=== PATIENT | female | born 1995 | race African-American/Black ===

== ENCOUNTER 2016-09-29 19:39 | Emergency (ER) | payer MEDICAID ==
[~2016-09-29] VITALS: Ht 160 cm; Wt 63.6 kg
[~2016-09-29 19:39] MED LIST: COLACE 100100 MG/CAP PO; DILAUDID 2MG TAB2 MG PO; DOXYCYCLINE 10100 MG PO; FOLIC ACID 11 MG/TA1 PO; HYDROXYURE500 MG/CAP PO; LEVAQUIN 5500 MG/TA1 PO; MOTRIN 200200 MG/TAB PO; MULTI VITAMINS1 TAB PO; NORCO 325 MG-51 TAB PO; NORCO 325 MG-7.1 TAB PO; PEN-VEE K500 MG PO; PERCOCET 325 MG1 TA2 PO; PHENERGAN 25 TA25 MG PO; SENOKOT S 50 MG1 TAB PO; TYLENOL W/COD1 UDTAB PO; VITAMIN D32000 I1 PO; ZITHROMAX 250M250 MG PO; ZOFRAN 4MG T4 MG/TAB PO
[2016-09-29 19:41] VITALS: TEMP 99
[2016-09-29 22:04] LABS: MEAN CELL VOLUME 96 fl (80.0-100.0); MEAN CORPUSCULAR HGB CONC 35 g/dl (33.0-37.0); MEAN PLATELET VOLUME 8.8 fl (7.4-10.4); PLATELET COUNT 404 K/mm3 (130-400); RED BLOOD COUNT 2.46 M/mm3 (4.10-5.30); REDCELL DISTRIBUTION WIDTH-CV 23.2 % (11.5-14.5); RETIC % 25.8 % (0.5-3.52); WHITE BLOOD COUNT 18.8 K/mm3 (4.8-10.8)
[2016-09-29 22:06] LABS: HEMATOCRIT 23.5 % (37.0-47.0); HEMOGLOBIN 8.2 g/dl (12.5-16.0); MEAN CORPUSCULAR HEMOGLOBIN 33 pg (27.0-31.0)
[2016-09-29 22:07] LABS: ADD PATHOLOGY DIFF REVIEW NO
[2016-09-29 22:14] LABS: ADJUSTED CALCIUM 8.8 mg/dL (8.4-10.2); ALBUMIN 4.9 gm/dL (3.5-5.0); BILIRUBIN,TOTAL 5.2 mg/dL (0.0-1.0); CALCIUM 9.5 mg/dL (8.4-10.2); CREATININE, serum 0.42 mg/dL (0.52-1.25); TOTAL PROTEIN 8.7 gm/dL (6.4-8.2)
[2016-09-29 22:36] LABS: ANISOCYTOSIS 3+; BAND 1 % (0-10); EOSINOPHIL 1 % (0-4); NEUTROPHILS 89 % (42.0-75.2); PLATELET ESTIMATE INCREASED (NORMAL); TOTAL CELLS COUNTED 100
[2016-09-29 22:37] LABS: SICKLE CELLS 3+
[2016-09-29] MEDS ORDERED: PHENERGAN 25 TA25 MG PO (23:58)
[2016-09-29] MEDS ORDERED: ZOFRAN ODT4 MG PO (23:58)
[2016-09-30 00:01] LABS: PH 7 (5-8); SQUAMOUS EPITHELIAL 0-2 /hpf; URINE APPEARANCE Clear; URINE BACTERIA Rare /hpf; URINE BILIRUBIN Negative (NEGATIVE); URINE BLOOD 2+ (NEGATIVE); URINE COLOR Yellow; URINE GLUCOSE Negative (NEGATIVE); URINE KETONE Negative (NEGATIVE); URINE RBC 0-2 /hpf; URINE UROBILINOGEN >=4.0 mg/dL (NEGATIVE); URINE WBC 0-2 /hpf
[2016-09-30 00:32] LABS: TROPONIN-I 0.027 ng/mL (0.000-0.034)
[2016-09-30 01:29] VITALS: BP 100/69; PULSE 116
== END 2016-09-30 01:32 | disposition home or self-care (01) ==
LOC: COL.ER 19:39
PROVIDERS: Emergency Medicine
DX: R11.2 Nausea with vomiting, unspecified (principal); D57.1 Sickle-cell disease without crisis; R00.0 Tachycardia, unspecified; R10.13 Epigastric pain; R10.32 Left lower quadrant pain; N83.201 Unspecified ovarian cyst, right side; R19.7 Diarrhea, unspecified
CPT/HCPCS: J2405; J2550; J3010; J7030

== ENCOUNTER 2016-10-06 09:57 | Inpatient (IN) | payer MEDICAID ==
[~2016-10-06] VITALS: Ht 160 cm; Wt 68.9 kg
[~2016-10-06 09:57] MED LIST changes: +ZOFRAN ODT4 MG PO
[2016-10-06] MEDS ORDERED: VITAMIN D 1001000 IU PO (10:13)
[2016-10-06 10:42] LABS: MEAN CELL VOLUME 97 fl (80.0-100.0); MEAN CORPUSCULAR HGB CONC 34 g/dl (33.0-37.0); MEAN PLATELET VOLUME 9.5 fl (7.4-10.4); PLATELET COUNT 351 K/mm3 (130-400); RED BLOOD COUNT 2.19 M/mm3 (4.10-5.30); REDCELL DISTRIBUTION WIDTH-CV 22.5 % (11.5-14.5); RETIC % 25.6 % (0.5-3.52); WHITE BLOOD COUNT 17.2 K/mm3 (4.8-10.8)
[2016-10-06 10:52] LABS: ADJUSTED CALCIUM 8.7 mg/dL (8.4-10.2); ALBUMIN 4.4 gm/dL (3.5-5.0); CREATININE, serum 0.4 mg/dL (0.52-1.25); POTASSIUM 3.7 mmol/L (3.4-5.0); TOTAL PROTEIN 7.7 gm/dL (6.4-8.2)
[2016-10-06 11:50] LABS: HEMATOCRIT 21.2 % (37.0-47.0); HEMOGLOBIN 7.1 g/dl (12.5-16.0); MEAN CORPUSCULAR HEMOGLOBIN 32 pg (27.0-31.0)
[2016-10-06 11:54] LABS: ADD PATHOLOGY DIFF REVIEW NO
[2016-10-06 12:50] LABS: BAND 1 % (0-10); BASOPHIL 2 % (0-2); EOSINOPHIL 3 % (0-4); METAMYELOCYTE 2 % (0-0); MYELOCYTE 2 % (0-0); NEUTROPHILS 49 % (42.0-75.2); TOTAL CELLS COUNTED 100
[2016-10-06 12:52] LABS: PLATELET ESTIMATE NORMAL (NORMAL)
[2016-10-06 12:55] LABS: ANISOCYTOSIS 3+; HYPOCHROMIA 2+; POIKILOCYTOSIS 3+; POLYCHROMASIA 3+
[2016-10-06 12:56] LABS: MICROCYTOSIS 1+
[2016-10-06 12:57] LABS: TARGET CELLS 1+; TEAR DROP CELLS 1+
[2016-10-06 13:01] LABS: SICKLE CELLS 2+
[2016-10-06 14:39] VITALS: BP 115/74; PULSE 109; TEMP 98.7
[2016-10-06 21:06] VITALS: BP 118/60; PULSE 119; TEMP 100
[2016-10-06 22:56] LABS: PH 6 (5-8); SQUAMOUS EPITHELIAL 0-2 /hpf; URINE APPEARANCE Clear; URINE BACTERIA Rare /hpf; URINE BILIRUBIN Negative (NEGATIVE); URINE BLOOD 1+ (NEGATIVE); URINE COLOR Yellow; URINE GLUCOSE Negative (NEGATIVE); URINE KETONE Negative (NEGATIVE); URINE RBC 0-2 /hpf; URINE WBC 0-2 /hpf
[2016-10-07] VITALS (15 sets, daily range): BP systolic 115–135; BP diastolic 60–86; PULSE 100–133; TEMP 98.4–101
[2016-10-07 07:09] LABS: MEAN CELL VOLUME 93 fl (80.0-100.0); MEAN CORPUSCULAR HGB CONC 35 g/dl (33.0-37.0); MEAN PLATELET VOLUME 9.4 fl (7.4-10.4); PLATELET COUNT 367 K/mm3 (130-400); REDCELL DISTRIBUTION WIDTH-CV 21.8 % (11.5-14.5); RETIC % 23.7 % (0.5-3.52)
[2016-10-07 07:16] LABS: WHITE BLOOD COUNT 21.1 K/mm3 (4.8-10.8)
[2016-10-07 07:17] LABS: HEMATOCRIT 18.5 % (37.0-47.0); HEMOGLOBIN 6.4 g/dl (12.5-16.0); MEAN CORPUSCULAR HEMOGLOBIN 32 pg (27.0-31.0)
[2016-10-07 07:23] LABS: CALCIUM 8.6 mg/dL (8.4-10.2); CREATININE, serum 0.36 mg/dL (0.52-1.25); POTASSIUM 3.5 mmol/L (3.4-5.0)
[2016-10-07 08:00] LABS: BAND 3 % (0-10); BASOPHIL 1 % (0-2); NEUTROPHILS 79 % (42.0-75.2); PLATELET ESTIMATE NORMAL (NORMAL); TOTAL CELLS COUNTED 100
[2016-10-07 08:01] LABS: ANISOCYTOSIS 2+; HYPOCHROMIA 1+; POLYCHROMASIA 2+
[2016-10-07 08:57] LABS: ADD PATHOLOGY DIFF REVIEW YES
[2016-10-08 00:09] VITALS: BP 129/81; PULSE 128; TEMP 101.4
[2016-10-08 03:34] LABS: MEAN CELL VOLUME 92 fl (80.0-100.0); MEAN CORPUSCULAR HGB CONC 35 g/dl (33.0-37.0); MEAN PLATELET VOLUME 9.3 fl (7.4-10.4); PLATELET COUNT 341 K/mm3 (130-400); REDCELL DISTRIBUTION WIDTH-CV 19.9 % (11.5-14.5)
[2016-10-08 03:44] LABS: CREATININE, serum 0.34 mg/dL (0.52-1.25); POTASSIUM 3.9 mmol/L (3.4-5.0)
[2016-10-08 03:59] LABS: HEMOGLOBIN 7.7 g/dl (12.5-16.0); MEAN CORPUSCULAR HEMOGLOBIN 32 pg (27.0-31.0)
[2016-10-08 04:01] LABS: ADD PATHOLOGY DIFF REVIEW NO; WHITE BLOOD COUNT 23.7 K/mm3 (4.8-10.8)
[2016-10-08 04:09] VITALS: BP 124/76; PULSE 124; TEMP 101.7
[2016-10-08 04:33] LABS: PH 6 (5-8); SQUAMOUS EPITHELIAL 0-2 /hpf; URINE APPEARANCE Clear; URINE BACTERIA Rare /hpf; URINE BILIRUBIN Negative (NEGATIVE); URINE BLOOD 1+ (NEGATIVE); URINE COLOR Yellow; URINE GLUCOSE Negative (NEGATIVE); URINE KETONE 1+ (NEGATIVE); URINE RBC 0-2 /hpf; URINE UROBILINOGEN Negative (NEGATIVE); URINE WBC 0-2 /hpf
[2016-10-08 04:34] LABS: ANISOCYTOSIS 2+; BAND 8 % (0-10); NEUTROPHILS 79 % (42.0-75.2); PLATELET ESTIMATE NORMAL (NORMAL); TOTAL CELLS COUNTED 100
[2016-10-08 04:36] LABS: POLYCHROMASIA 1+
[2016-10-08 08:48] VITALS: BP 124/78; PULSE 118; TEMP 99.1
[2016-10-08 11:42] LABS: INFLUENZA B NEGATIVE
[2016-10-08 17:21] VITALS: BP 124/70; PULSE 126; TEMP 100.6
[2016-10-08 20:50] VITALS: BP 124/72; PULSE 116; TEMP 100
[2016-10-09] VITALS (10 sets, daily range): BP systolic 120–132; BP diastolic 66–84; PULSE 97–125; TEMP 98–100.6
[2016-10-09 07:49] LABS: BASO % 0.2 % (0.0-2.0); EOS % 0.2 % (0-4.0); GRAN # 14.2 (1.4-6.5); GRAN % 80.2 % (42.2-75.2); LYMPH # 1.6 (1.2-3.4); LYMPH % 9.1 % (20.0-51.0); MEAN CELL VOLUME 94 fl (80.0-100.0); MEAN CORPUSCULAR HGB CONC 34 g/dl (33.0-37.0); MEAN PLATELET VOLUME 9.8 fl (7.4-10.4); MONO # 1.6 (0.1-0.6); MONO % 9.1 % (1.7-9.3); PLATELET COUNT 354 K/mm3 (130-400); RED BLOOD COUNT 1.94 M/mm3 (4.10-5.30); REDCELL DISTRIBUTION WIDTH-CV 19.1 % (11.5-14.5); RETIC % 21.9 % (0.5-3.52); WHITE BLOOD COUNT 17.6 K/mm3 (4.8-10.8)
[2016-10-09 07:52] LABS: HEMATOCRIT 18.2 % (37.0-47.0); HEMOGLOBIN 6.2 g/dl (12.5-16.0); MEAN CORPUSCULAR HEMOGLOBIN 32 pg (27.0-31.0)
[2016-10-09 08:18] LABS: CALCIUM 8.7 mg/dL (8.4-10.2); CREATININE, serum 0.34 mg/dL (0.52-1.25)
[2016-10-10] VITALS (10 sets, daily range): BP systolic 124–133; BP diastolic 76–960; PULSE 90–110; TEMP 98.3–99.1
[2016-10-10 07:40] LABS: BASO % 0.3 % (0.0-2.0); EOS # 0.2 (0.0-0.7); EOS % 1.5 % (0-4.0); GRAN # 8.5 (1.4-6.5); GRAN % 71.4 % (42.2-75.2); LYMPH # 1.8 (1.2-3.4); LYMPH % 15.4 % (20.0-51.0); MEAN CELL VOLUME 90 fl (80.0-100.0); MEAN CORPUSCULAR HGB CONC 34 g/dl (33.0-37.0); MEAN PLATELET VOLUME 9.3 fl (7.4-10.4); MONO # 1.3 (0.1-0.6); MONO % 10.6 % (1.7-9.3); PLATELET COUNT 397 K/mm3 (130-400); RED BLOOD COUNT 2.21 M/mm3 (4.10-5.30); REDCELL DISTRIBUTION WIDTH-CV 18.9 % (11.5-14.5); WHITE BLOOD COUNT 11.9 K/mm3 (4.8-10.8)
[2016-10-10 07:44] LABS: HEMATOCRIT 19.8 % (37.0-47.0); HEMOGLOBIN 6.7 g/dl (12.5-16.0); MEAN CORPUSCULAR HEMOGLOBIN 30 pg (27.0-31.0)
[2016-10-10 08:04] LABS: ANION GAP 9 mmol/L (7-16); CALCIUM 8.8 mg/dL (8.4-10.2); CARBON DIOXIDE 27 mmol/L (22-30); CHLORIDE 105 mmol/L (98-107); CREATININE, serum 0.35 mg/dL (0.52-1.25); GLUCOSE 79 mg/dL (74-106); SODIUM 142 mmol/L (137-145)
[2016-10-10 08:35] LABS: BLOOD UREA NITROGEN < 2 mg/dL (7-17)
[2016-10-10 08:37] LABS: POTASSIUM 2.9 mmol/L (3.4-5.0)
[2016-10-11] VITALS (9 sets, daily range): BP systolic 126–145; BP diastolic 81–90; PULSE 72–94; TEMP 98.3–99.8
[2016-10-11 07:15] LABS: BASO % 0.3 % (0.0-2.0); EOS # 0.2 (0.0-0.7); EOS % 2.5 % (0-4.0); GRAN # 5.3 (1.4-6.5); GRAN % 55.9 % (42.2-75.2); LYMPH # 2.9 (1.2-3.4); LYMPH % 30.2 % (20.0-51.0); MEAN CELL VOLUME 91 fl (80.0-100.0); MEAN CORPUSCULAR HGB CONC 33 g/dl (33.0-37.0); MEAN PLATELET VOLUME 9.4 fl (7.4-10.4); MONO % 10.6 % (1.7-9.3); PLATELET COUNT 394 K/mm3 (130-400); RED BLOOD COUNT 2.31 M/mm3 (4.10-5.30); REDCELL DISTRIBUTION WIDTH-CV 18.8 % (11.5-14.5); WHITE BLOOD COUNT 9.4 K/mm3 (4.8-10.8)
[2016-10-11 07:30] LABS: HEMOGLOBIN 6.9 g/dl (12.5-16.0); MEAN CORPUSCULAR HEMOGLOBIN 30 pg (27.0-31.0)
[2016-10-11 07:33] LABS: ANION GAP 9 mmol/L (7-16); CALCIUM 8.7 mg/dL (8.4-10.2); CARBON DIOXIDE 27 mmol/L (22-30); CHLORIDE 106 mmol/L (98-107); CREATININE, serum 0.33 mg/dL (0.52-1.25); GLUCOSE 79 mg/dL (74-106); POTASSIUM 3.2 mmol/L (3.4-5.0); SODIUM 142 mmol/L (137-145)
[2016-10-11 07:39] LABS: BLOOD UREA NITROGEN < 2 mg/dL (7-17)
[2016-10-11 08:22] LABS: MAGNESIUM 1.7 mg/dL (1.6-2.3)
[2016-10-12] VITALS (9 sets, daily range): BP systolic 122–140; BP diastolic 80–93; PULSE 63–92; TEMP 98.1–99.6
[2016-10-12 07:22] LABS: BASO % 0.3 % (0.0-2.0); EOS # 0.3 (0.0-0.7); EOS % 2.5 % (0-4.0); GRAN # 5.9 (1.4-6.5); GRAN % 56.6 % (42.2-75.2); LYMPH # 3.2 (1.2-3.4); LYMPH % 30.8 % (20.0-51.0); MEAN CELL VOLUME 91 fl (80.0-100.0); MEAN CORPUSCULAR HGB CONC 32 g/dl (33.0-37.0); MEAN PLATELET VOLUME 9.4 fl (7.4-10.4); MONO % 9.4 % (1.7-9.3); PLATELET COUNT 422 K/mm3 (130-400); RED BLOOD COUNT 2.45 M/mm3 (4.10-5.30); REDCELL DISTRIBUTION WIDTH-CV 19.6 % (11.5-14.5); WHITE BLOOD COUNT 10.4 K/mm3 (4.8-10.8)
[2016-10-12 07:35] LABS: ANION GAP 10 mmol/L (7-16); CARBON DIOXIDE 26 mmol/L (22-30); CHLORIDE 104 mmol/L (98-107); CREATININE, serum 0.35 mg/dL (0.52-1.25); GLUCOSE 78 mg/dL (74-106); POTASSIUM 3.3 mmol/L (3.4-5.0); SODIUM 141 mmol/L (137-145)
[2016-10-12 07:41] LABS: HEMATOCRIT 22.3 % (37.0-47.0); MEAN CORPUSCULAR HEMOGLOBIN 29 pg (27.0-31.0)
[2016-10-12 07:43] LABS: HEMOGLOBIN 7.2 g/dl (12.5-16.0)
[2016-10-12 07:44] LABS: BLOOD UREA NITROGEN < 2 mg/dL (7-17)
[2016-10-13 00:35] VITALS: BP 132/80; PULSE 73; TEMP 98.7
[2016-10-13 04:30] VITALS: BP 130/94; PULSE 74; TEMP 97.6
[2016-10-13 07:20] VITALS: BP 137/85; PULSE 108; TEMP 98.5
[2016-10-13 07:31] LABS: BASO % 0.3 % (0.0-2.0); EOS # 0.2 (0.0-0.7); EOS % 2.6 % (0-4.0); GRAN # 4.6 (1.4-6.5); GRAN % 52.5 % (42.2-75.2); LYMPH % 34.1 % (20.0-51.0); MEAN CELL VOLUME 92 fl (80.0-100.0); MEAN CORPUSCULAR HGB CONC 32 g/dl (33.0-37.0); MEAN PLATELET VOLUME 9.7 fl (7.4-10.4); MONO # 0.9 (0.1-0.6); MONO % 9.9 % (1.7-9.3); PLATELET COUNT 462 K/mm3 (130-400); REDCELL DISTRIBUTION WIDTH-CV 19.9 % (11.5-14.5); WHITE BLOOD COUNT 8.7 K/mm3 (4.8-10.8)
[2016-10-13 08:05] LABS: ANION GAP 10 mmol/L (7-16); CALCIUM 8.8 mg/dL (8.4-10.2); CARBON DIOXIDE 27 mmol/L (22-30); CHLORIDE 104 mmol/L (98-107); CREATININE, serum 0.35 mg/dL (0.52-1.25); GLUCOSE 83 mg/dL (74-106); POTASSIUM 3.4 mmol/L (3.4-5.0); SODIUM 141 mmol/L (137-145)
[2016-10-13 08:27] LABS: BLOOD UREA NITROGEN < 2 mg/dL (7-17)
[2016-10-13 08:47] LABS: HEMATOCRIT 22.9 % (37.0-47.0); HEMOGLOBIN 7.4 g/dl (12.5-16.0); MEAN CORPUSCULAR HEMOGLOBIN 30 pg (27.0-31.0)
[2016-10-13] MEDS ORDERED: MS CONTIN 115 MG/TAB PO (10:43)
[2016-10-13] MEDS ORDERED: NORCO 325 MG-51 TAB PO (10:43)
[2016-10-13] MEDS ORDERED: AMOXICILLIN 8751 TAB PO (10:43)
[2016-10-13 11:54] VITALS: BP 143/82; PULSE 54; TEMP 98.6
== END 2016-10-13 15:23 | disposition home or self-care (01) | DRG 811 ==
LOC: COL.ER 09:57 → MEDICAL 12:08
PROVIDERS: Emergency Medicine; Family Medicine; Internal Medicine; Nurse Practitioner Family
DX: D57.01 Hb-SS disease with acute chest syndrome (principal); A41.9 Sepsis, unspecified organism; J18.9 Pneumonia, unspecified organism; J91.8 Pleural effusion in other conditions classified elsewhere; K56.7 Ileus, unspecified; E87.6 Hypokalemia; R50.81 Fever presenting with conditions classified elsewhere
CPT/HCPCS: 99231-AI; 99232-AI; 99233-AI; 99239; A9284; G0378; J1170; J1200; J1644; J1650; J2060; J2270; J2405; J2543; J3370; J3480; J7030; J7040; J7050; P9016

== ENCOUNTER 2016-12-05 11:58 | Inpatient (IN) | payer MEDICAID ==
[~2016-12-05] VITALS: Ht 160 cm; Wt 69.2 kg
[2016-12-05] VITALS (9 sets, daily range): BP systolic 97–112; BP diastolic 45–77; PULSE 75–99; TEMP 98.1–98.3
[~2016-12-05 11:58] MED LIST changes: +AMOXICILLIN 8751 TAB PO; +MS CONTIN 115 MG/TAB PO; +VITAMIN D 1001000 IU PO
[2016-12-05 13:25] LABS: BASO # 0.1 (0.0-0.2); BASO % 0.5 % (0.0-2.0); EOS # 0.8 (0.0-0.7); EOS % 5.5 % (0-4.0); GRAN # 8.6 (1.4-6.5); GRAN % 56.3 % (42.2-75.2); LYMPH # 3.9 (1.2-3.4); LYMPH % 25.6 % (20.0-51.0); MEAN CELL VOLUME 100 fl (80.0-100.0); MEAN CORPUSCULAR HGB CONC 35 g/dl (33.0-37.0); MEAN PLATELET VOLUME 9.5 fl (7.4-10.4); MONO # 1.7 (0.1-0.6); MONO % 10.9 % (1.7-9.3); PLATELET COUNT 326 K/mm3 (130-400); RED BLOOD COUNT 2.14 M/mm3 (4.10-5.30); REDCELL DISTRIBUTION WIDTH-CV 28.1 % (11.5-14.5); RETIC % 37.7 % (0.5-3.52); WHITE BLOOD COUNT 15.3 K/mm3 (4.8-10.8)
[2016-12-05 13:26] LABS: HEMATOCRIT 21.3 % (37.0-47.0); MEAN CORPUSCULAR HEMOGLOBIN 35 pg (27.0-31.0)
[2016-12-05 13:27] LABS: HEMOGLOBIN 7.5 g/dl (12.5-16.0)
[2016-12-05 13:32] LABS: ADJUSTED CALCIUM 8.6 mg/dL (8.4-10.2); ALBUMIN 5.1 gm/dL (3.5-5.0); BILIRUBIN,TOTAL 4.8 mg/dL (0.0-1.0); C-REACTIVE PROTEIN 1.8 mg/dL (0.0-0.9); CALCIUM 9.5 mg/dL (8.4-10.2); CREATININE, serum 0.39 mg/dL (0.52-1.25); POTASSIUM 4.3 mmol/L (3.4-5.0); TOTAL PROTEIN 8.6 gm/dL (6.4-8.2)
[2016-12-05 15:47] LABS: PH 5 (5-8); SQUAMOUS EPITHELIAL 0-2 /hpf; URINE APPEARANCE Clear; URINE BACTERIA None Seen /hpf; URINE BILIRUBIN Negative (NEGATIVE); URINE BLOOD 1+ (NEGATIVE); URINE COLOR Yellow; URINE GLUCOSE Negative (NEGATIVE); URINE KETONE Negative (NEGATIVE); URINE RBC 0-2 /hpf; URINE WBC 0-2 /hpf
[2016-12-06] VITALS (10 sets, daily range): BP systolic 93–105; BP diastolic 48–66; PULSE 72–85; TEMP 98.3–99.1
[2016-12-07] VITALS (14 sets, daily range): BP systolic 94–115; BP diastolic 40–69; PULSE 65–103; TEMP 98.3–99.4
[2016-12-08] VITALS (7 sets, daily range): BP systolic 101–108; BP diastolic 50–60; PULSE 73–103; TEMP 98.2–99.5
[2016-12-09 01:11] VITALS: BP 104/55; PULSE 71; TEMP 99.5
[2016-12-09 03:56] VITALS: BP 107/53; PULSE 102; TEMP 99.1
[2016-12-09 07:34] VITALS: BP 107/49; PULSE 93; TEMP 99
[2016-12-09 12:00] VITALS: BP 111/57; PULSE 101; TEMP 98.2
[2016-12-09] MEDS ORDERED: ZOFRAN ODT4 MG PO (12:03)
[2016-12-09] MEDS ORDERED: PERCOCET 325 MG1 TAB PO (12:03)
[2016-12-09] MEDS ORDERED: MS CONTIN 115 MG/TAB PO (12:03)
== END 2016-12-09 14:04 | disposition home or self-care (01) | DRG 812 ==
LOC: COL.ER 11:58 → MEDICAL 16:42
PROVIDERS: Emergency Medicine
DX: D57.00 Hb-SS disease with crisis, unspecified (principal)
CPT/HCPCS: 99222-AI; 99232-AI; 99233-AI; 99239; J1170; J1200; J1644; J1650; J2175; J2405; J3010; J7030

== ENCOUNTER 2016-12-18 20:19 | Inpatient (IN) | payer MEDICAID ==
[~2016-12-18] VITALS: Ht 162.6 cm; Wt 62.5 kg
[~2016-12-18 20:19] MED LIST changes: +PERCOCET 325 MG1 TAB PO
[2016-12-18 21:00] LABS: HEMATOCRIT 18.7 % (37.0-47.0); HEMOGLOBIN 6.7 g/dl (12.5-16.0); MEAN CELL VOLUME 98 fl (80.0-100.0); MEAN CORPUSCULAR HEMOGLOBIN 35 pg (27.0-31.0); MEAN CORPUSCULAR HGB CONC 36 g/dl (33.0-37.0); MEAN PLATELET VOLUME 9.4 fl (7.4-10.4); PLATELET COUNT 343 K/mm3 (130-400); REDCELL DISTRIBUTION WIDTH-CV 25.4 % (11.5-14.5); RETIC % 23.9 % (0.5-3.52); WHITE BLOOD COUNT 18.7 K/mm3 (4.8-10.8)
[2016-12-18 21:07] LABS: ADJUSTED CALCIUM 8.8 mg/dL (8.4-10.2); BILIRUBIN,TOTAL 4.3 mg/dL (0.0-1.0); CALCIUM 9.6 mg/dL (8.4-10.2); CREATININE, serum 0.49 mg/dL (0.52-1.25); POTASSIUM 4.5 mmol/L (3.4-5.0); TOTAL PROTEIN 8.5 gm/dL (6.4-8.2)
[2016-12-18 21:19] LABS: ANISOCYTOSIS 3+; EOSINOPHIL 2 % (0-4); NEUTROPHILS 58 % (42.0-75.2); PLATELET ESTIMATE NORMAL (NORMAL); TOTAL CELLS COUNTED 100
[2016-12-18 21:20] LABS: POLYCHROMASIA 1+
[2016-12-18 22:29] VITALS: BP 120/70; PULSE 100; TEMP 100.2
[2016-12-18 23:38] VITALS: BP 106/48; PULSE 89; TEMP 99
[2016-12-18 23:54] VITALS: BP 106/49; PULSE 86; TEMP 98.7
[2016-12-19] VITALS (12 sets, daily range): BP systolic 102–112; BP diastolic 59–74; PULSE 73–95; TEMP 97.6–99.3
[2016-12-19 01:25] LABS: PH 6 (5-8); SQUAMOUS EPITHELIAL 0-2 /hpf; URINE APPEARANCE Hazy; URINE BACTERIA None Seen /hpf; URINE BILIRUBIN Negative (NEGATIVE); URINE BLOOD 2+ (NEGATIVE); URINE COLOR Yellow; URINE GLUCOSE Negative (NEGATIVE); URINE KETONE Negative (NEGATIVE); URINE RBC 0-2 /hpf; URINE UROBILINOGEN Negative (NEGATIVE); URINE WBC 0-2 /hpf
[2016-12-19 07:34] LABS: MEAN CELL VOLUME 98 fl (80.0-100.0); MEAN CORPUSCULAR HGB CONC 35 g/dl (33.0-37.0); MEAN PLATELET VOLUME 9.7 fl (7.4-10.4); PLATELET COUNT 343 K/mm3 (130-400); RED BLOOD COUNT 1.97 M/mm3 (4.10-5.30); REDCELL DISTRIBUTION WIDTH-CV 23.4 % (11.5-14.5); WHITE BLOOD COUNT 14.6 K/mm3 (4.8-10.8)
[2016-12-19 07:43] LABS: ADD PATHOLOGY DIFF REVIEW NO; HEMATOCRIT 19.2 % (37.0-47.0); HEMOGLOBIN 6.7 g/dl (12.5-16.0); MEAN CORPUSCULAR HEMOGLOBIN 34 pg (27.0-31.0)
[2016-12-19 07:45] LABS: CALCIUM 8.8 mg/dL (8.4-10.2); CREATININE, serum 0.4 mg/dL (0.52-1.25); POTASSIUM 3.8 mmol/L (3.4-5.0)
[2016-12-19 14:35] LABS: BAND 1 % (0-10); BASOPHIL 1 % (0-2); EOSINOPHIL 3 % (0-4); NEUTROPHILS 44 % (42.0-75.2); PLATELET ESTIMATE NORMAL (NORMAL); TOTAL CELLS COUNTED 100
[2016-12-19 14:36] LABS: ANISOCYTOSIS 4+; POIKILOCYTOSIS 4+
[2016-12-19 14:56] LABS: POLYCHROMASIA 2+
[2016-12-19 14:57] LABS: HYPOCHROMIA 2+
[2016-12-19 14:58] LABS: MICROCYTOSIS 1+; SICKLE CELLS 3+
[2016-12-20] VITALS (14 sets, daily range): BP systolic 90–126; BP diastolic 47–81; PULSE 60–107; TEMP 98.4–98.8
[2016-12-20 08:15] LABS: BASO % 0.3 % (0.0-2.0); EOS # 0.5 (0.0-0.7); EOS % 3.8 % (0-4.0); GRAN # 7.3 (1.4-6.5); GRAN % 62.4 % (42.2-75.2); LYMPH # 2.5 (1.2-3.4); MEAN CELL VOLUME 98 fl (80.0-100.0); MEAN CORPUSCULAR HGB CONC 34 g/dl (33.0-37.0); MEAN PLATELET VOLUME 9.7 fl (7.4-10.4); MONO # 1.4 (0.1-0.6); MONO % 11.9 % (1.7-9.3); PLATELET COUNT 332 K/mm3 (130-400); RED BLOOD COUNT 1.86 M/mm3 (4.10-5.30); REDCELL DISTRIBUTION WIDTH-CV 24.2 % (11.5-14.5); WHITE BLOOD COUNT 11.7 K/mm3 (4.8-10.8)
[2016-12-20 08:51] LABS: HEMATOCRIT 18.3 % (37.0-47.0); HEMOGLOBIN 6.2 g/dl (12.5-16.0); MEAN CORPUSCULAR HEMOGLOBIN 33 pg (27.0-31.0)
[2016-12-20 09:58] LABS: RETIC % 26.5 % (0.5-3.52)
[2016-12-21] VITALS (10 sets, daily range): BP systolic 105–129; BP diastolic 60–74; PULSE 73–118; TEMP 98.6–100.5
[2016-12-22] VITALS (14 sets, daily range): BP systolic 104–124; BP diastolic 55–77; PULSE 72–123; TEMP 98.2–99.6
[2016-12-22 07:32] LABS: BASO % 0.2 % (0.0-2.0); EOS # 0.1 (0.0-0.7); EOS % 1.3 % (0-4.0); GRAN # 6.9 (1.4-6.5); GRAN % 61.8 % (42.2-75.2); LYMPH # 2.9 (1.2-3.4); LYMPH % 25.5 % (20.0-51.0); MEAN CORPUSCULAR HGB CONC 35 g/dl (33.0-37.0); MEAN PLATELET VOLUME 9.6 fl (7.4-10.4); MONO # 1.2 (0.1-0.6); MONO % 10.8 % (1.7-9.3); PLATELET COUNT 398 K/mm3 (130-400); RED BLOOD COUNT 2.06 M/mm3 (4.10-5.30); REDCELL DISTRIBUTION WIDTH-CV 20.8 % (11.5-14.5); WHITE BLOOD COUNT 11.2 K/mm3 (4.8-10.8)
[2016-12-22 08:05] LABS: HEMATOCRIT 19.2 % (37.0-47.0); HEMOGLOBIN 6.7 g/dl (12.5-16.0); MEAN CELL VOLUME 93 fl (80.0-100.0); MEAN CORPUSCULAR HEMOGLOBIN 33 pg (27.0-31.0)
[2016-12-22 08:06] LABS: RETIC % 21.2 % (0.5-3.52)
[2016-12-22 14:55] LABS: BILIRUBIN,DIRECT 1.4 mg/dL (0.0-0.4); BILIRUBIN,TOTAL 3.9 mg/dL (0.0-1.0); TOTAL PROTEIN 6.1 gm/dL (6.4-8.2)
[2016-12-22 15:00] LABS: ALBUMIN 3.5 gm/dL (3.5-5.0)
[2016-12-23] VITALS (14 sets, daily range): BP systolic 102–116; BP diastolic 16–77; PULSE 74–99; TEMP 97.8–98.8
[2016-12-24] VITALS (9 sets, daily range): BP systolic 109–153; BP diastolic 64–86; PULSE 63–80; TEMP 98.5–98.9
[2016-12-24 17:23] LABS: BASO % 0.6 % (0.0-2.0); EOS # 0.9 (0.0-0.7); EOS % 13.1 % (0-4.0); GRAN # 2.2 (1.4-6.5); GRAN % 33.7 % (42.2-75.2); LYMPH # 2.8 (1.2-3.4); LYMPH % 42.7 % (20.0-51.0); MEAN CELL VOLUME 91 fl (80.0-100.0); MEAN CORPUSCULAR HGB CONC 34 g/dl (33.0-37.0); MEAN PLATELET VOLUME 8.8 fl (7.4-10.4); MONO # 0.6 (0.1-0.6); MONO % 9.6 % (1.7-9.3); PLATELET COUNT 448 K/mm3 (130-400); REDCELL DISTRIBUTION WIDTH-CV 17.2 % (11.5-14.5); WHITE BLOOD COUNT 6.6 K/mm3 (4.8-10.8)
[2016-12-24 17:43] LABS: HEMATOCRIT 29.9 % (37.0-47.0); HEMOGLOBIN 10.2 g/dl (12.5-16.0); MEAN CORPUSCULAR HEMOGLOBIN 31 pg (27.0-31.0)
[2016-12-25 08:36] VITALS: BP 101/59; PULSE 65
[2016-12-25 08:46] VITALS: BP 101/56; PULSE 65; TEMP 100.8
[2016-12-25 12:05] VITALS: BP 127/79; PULSE 64; TEMP 99.6
[2016-12-25 12:50] VITALS: BP 127/69; PULSE 64
[2016-12-25] MEDS ORDERED: DILAUDID8 M1 PO (15:23)
== END 2016-12-25 16:42 | disposition home or self-care (01) | DRG 811 ==
LOC: COL.ER 20:19 → MEDICAL 21:10
PROVIDERS: Emergency Medicine; Internal Medicine; Internal Medicine Cardiovascular Disease; Nurse Practitioner Family
DX: D57.01 Hb-SS disease with acute chest syndrome (principal); J18.9 Pneumonia, unspecified organism; J90 Pleural effusion, not elsewhere classified; R09.02 Hypoxemia; D72.829 Elevated white blood cell count, unspecified; Z91.041 Radiographic dye allergy status
CPT/HCPCS: 99223-AI; 99232-AI; 99233-AI; 99239; A9284; J1170; J1650; J1940; J1956; J2405; J2550; J2765; J3010; J7030; P9016

== ENCOUNTER 2017-03-10 14:40 | Inpatient (IN) | payer MEDICAID ==
[~2017-03-10] VITALS: Ht 160 cm; Wt 63.7 kg
[~2017-03-10 14:40] MED LIST changes: +DILAUDID8 M1 PO
[2017-03-10 16:39] LABS: PH 7 (5-8); URINE APPEARANCE Hazy; URINE BACTERIA Rare /hpf; URINE BILIRUBIN Negative (NEGATIVE); URINE BLOOD 1+ (NEGATIVE); URINE COLOR Yellow; URINE GLUCOSE Negative (NEGATIVE); URINE KETONE Negative (NEGATIVE); URINE UROBILINOGEN >=4.0 mg/dL (NEGATIVE)
[2017-03-10 18:10] LABS: MEAN CELL VOLUME 101 fl (80.0-100.0); MEAN CORPUSCULAR HGB CONC 33 g/dl (33.0-37.0); MEAN PLATELET VOLUME 10.7 fl (7.4-10.4); PLATELET COUNT 215 K/mm3 (130-400); RETIC % 32.3 % (0.5-3.52)
[2017-03-10 18:16] LABS: HEMATOCRIT 21.2 % (37.0-47.0); HEMOGLOBIN 6.9 g/dl (12.5-16.0); MEAN CORPUSCULAR HEMOGLOBIN 33 pg (27.0-31.0)
[2017-03-10 18:22] LABS: ADJUSTED CALCIUM 8.7 mg/dL (8.4-10.2); ALBUMIN 3.6 gm/dL (3.5-5.0); BILIRUBIN,TOTAL 2.7 mg/dL (0.0-1.0); CALCIUM 8.4 mg/dL (8.4-10.2); CREATININE, serum 0.37 mg/dL (0.52-1.25); POTASSIUM 4.6 mmol/L (3.4-5.0)
[2017-03-10 18:31] LABS: ADD PATHOLOGY DIFF REVIEW NO
[2017-03-10 19:17] LABS: METAMYELOCYTE 1 % (0-0); MYELOCYTE 2 % (0-0); NEUTROPHILS 43 % (42.0-75.2); PLATELET ESTIMATE NORMAL (NORMAL); TOTAL CELLS COUNTED 100
[2017-03-10 19:18] LABS: ANISOCYTOSIS 3+; POIKILOCYTOSIS 2+; POLYCHROMASIA 3+
[2017-03-10 19:20] LABS: STOMATOCYTE 1+; TARGET CELLS 2+
[2017-03-10 19:21] LABS: HYPOCHROMIA 1+
[2017-03-10 19:25] LABS: SICKLE CELLS 1+
[2017-03-10 21:04] VITALS: BP 125/71; PULSE 98; TEMP 98.6
[2017-03-10 22:25] LABS: BASO # 0.1 (0.0-0.2); BASO % 0.4 % (0.0-2.0); EOS # 0.1 (0.0-0.7); EOS % 0.7 % (0-4.0); GRAN # 4.7 (1.4-6.5); GRAN % 24.3 % (42.2-75.2); LYMPH # 12.8 (1.2-3.4); LYMPH % 66.7 % (20.0-51.0); MEAN CELL VOLUME 101 fl (80.0-100.0); MEAN CORPUSCULAR HGB CONC 32 g/dl (33.0-37.0); MEAN PLATELET VOLUME 9.9 fl (7.4-10.4); MONO # 1.2 (0.1-0.6); MONO % 6.3 % (1.7-9.3); REDCELL DISTRIBUTION WIDTH-CV 30.4 % (11.5-14.5); WHITE BLOOD COUNT 19.1 K/mm3 (4.8-10.8)
[2017-03-10 22:26] LABS: HEMATOCRIT 20.2 % (37.0-47.0); MEAN CORPUSCULAR HEMOGLOBIN 33 pg (27.0-31.0); PLATELET COUNT 319 K/mm3 (130-400)
[2017-03-10 22:27] LABS: HEMOGLOBIN 6.5 g/dl (12.5-16.0)
[2017-03-10 22:30] VITALS: BP 103/58; PULSE 104; TEMP 98.1
[2017-03-11] VITALS (15 sets, daily range): BP systolic 86–110; BP diastolic 54–74; PULSE 91–120; TEMP 97.3–98.7
[2017-03-12 00:10] VITALS: BP 97/59; PULSE 95; TEMP 97.4
[2017-03-12 03:52] VITALS: BP 107/71; PULSE 100; TEMP 98.1
[2017-03-12 07:41] VITALS: BP 106/61; PULSE 108; TEMP 98.4
[2017-03-12 09:39] LABS: MEAN CORPUSCULAR HGB CONC 34 g/dl (33.0-37.0); MEAN PLATELET VOLUME 10.1 fl (7.4-10.4); PLATELET COUNT 246 K/mm3 (130-400); RED BLOOD COUNT 2.77 M/mm3 (4.10-5.30); RETIC % 23.1 % (0.5-3.52); WHITE BLOOD COUNT 12.2 K/mm3 (4.8-10.8)
[2017-03-12 09:41] LABS: ADD PATHOLOGY DIFF REVIEW NO; HEMATOCRIT 26.3 % (37.0-47.0); HEMOGLOBIN 8.9 g/dl (12.5-16.0); MEAN CELL VOLUME 95 fl (80.0-100.0); MEAN CORPUSCULAR HEMOGLOBIN 32 pg (27.0-31.0)
[2017-03-12 09:55] LABS: BAND 3 % (0-10); NEUTROPHILS 39 % (42.0-75.2); PLATELET ESTIMATE NORMAL (NORMAL); TOTAL CELLS COUNTED 100
[2017-03-12 09:56] LABS: POLYCHROMASIA 1+; TARGET CELLS 1+
[2017-03-12 11:28] VITALS: BP 106/72; PULSE 99; TEMP 98.1
[2017-03-12 13:06] LABS: ADJUSTED CALCIUM 6.5 mg/dL (8.4-10.2); ALANINE AMINOTRANSFERASE 46 U/L (9-52); ALBUMIN 1.6 gm/dL (3.5-5.0); ALKALINE PHOSPHATASE 69 U/L (50-136); ANION GAP 5 mmol/L (7-16); BILIRUBIN,TOTAL 1.4 mg/dL (0.0-1.0); CARBON DIOXIDE 15 mmol/L (22-30); CHLORIDE 120 mmol/L (98-107); CREATININE, serum 0.24 mg/dL (0.52-1.25); GLUCOSE 40 mg/dL (74-106); SODIUM 140 mmol/L (137-145); TOTAL PROTEIN 3.8 gm/dL (6.4-8.2)
[2017-03-12 13:08] LABS: BLOOD UREA NITROGEN < 2 mg/dL (7-17)
[2017-03-12 13:09] LABS: CALCIUM 4.6 mg/dL (8.4-10.2); POTASSIUM 2.3 mmol/L (3.4-5.0)
[2017-03-12 14:05] LABS: ALBUMIN 3.6 gm/dL (3.5-5.0); BILIRUBIN,TOTAL 2.4 mg/dL (0.0-1.0); CALCIUM 8.7 mg/dL (8.4-10.2); CREATININE, serum 0.38 mg/dL (0.52-1.25); TOTAL PROTEIN 7.1 gm/dL (6.4-8.2)
[2017-03-12 15:34] VITALS: BP 111/67; PULSE 104; TEMP 98
[2017-03-12 21:06] VITALS: BP 108/61; PULSE 113; TEMP 98.3
[2017-03-13] VITALS (7 sets, daily range): BP systolic 104–120; BP diastolic 61–701; PULSE 97–120; TEMP 97.7–99.3
[2017-03-13 10:54] LABS: MEAN CELL VOLUME 97 fl (80.0-100.0); MEAN CORPUSCULAR HGB CONC 36 g/dl (33.0-37.0); MEAN PLATELET VOLUME 9.7 fl (7.4-10.4); RED BLOOD COUNT 2.57 M/mm3 (4.10-5.30); REDCELL DISTRIBUTION WIDTH-CV 25.2 % (11.5-14.5); RETIC % 19.5 % (0.5-3.52); WHITE BLOOD COUNT 11.4 K/mm3 (4.8-10.8)
[2017-03-13 10:55] LABS: HEMATOCRIT 24.8 % (37.0-47.0); HEMOGLOBIN 8.8 g/dl (12.5-16.0); MEAN CORPUSCULAR HEMOGLOBIN 34 pg (27.0-31.0); PLATELET COUNT 354 K/mm3 (130-400)
[2017-03-13 10:56] LABS: ADD PATHOLOGY DIFF REVIEW NO
[2017-03-13 12:13] LABS: BAND 3 % (0-10); BASOPHIL 1 % (0-2); EOSINOPHIL 1 % (0-4); METAMYELOCYTE 5 % (0-0); NEUTROPHILS 48 % (42.0-75.2); TOTAL CELLS COUNTED 100
[2017-03-13 12:16] LABS: PLATELET ESTIMATE NORMAL (NORMAL)
[2017-03-13 12:17] LABS: TOXIC GRANULATION PRESENT
[2017-03-13 12:18] LABS: ANISOCYTOSIS 3+
[2017-03-13 12:19] LABS: HOWELL-JOLLY BODIES 1+; SPHEROCYTE 3+
[2017-03-13 12:21] LABS: TARGET CELLS 2+
[2017-03-14 02:53] VITALS: BP 99/67; PULSE 103; TEMP 98.8
[2017-03-14 08:51] VITALS: BP 114/78; PULSE 95; TEMP 98.1
[2017-03-14 09:28] LABS: MEAN CELL VOLUME 97 fl (80.0-100.0); MEAN CORPUSCULAR HGB CONC 36 g/dl (33.0-37.0); MEAN PLATELET VOLUME 9.5 fl (7.4-10.4); PLATELET COUNT 365 K/mm3 (130-400); RED BLOOD COUNT 2.65 M/mm3 (4.10-5.30); REDCELL DISTRIBUTION WIDTH-CV 24.6 % (11.5-14.5); RETIC % 15.5 % (0.5-3.52); WHITE BLOOD COUNT 10.9 K/mm3 (4.8-10.8)
[2017-03-14 09:29] LABS: ADD PATHOLOGY DIFF REVIEW NO; HEMATOCRIT 25.6 % (37.0-47.0); HEMOGLOBIN 9.2 g/dl (12.5-16.0); MEAN CORPUSCULAR HEMOGLOBIN 35 pg (27.0-31.0)
[2017-03-14 10:03] LABS: EOSINOPHIL 1 % (0-4); METAMYELOCYTE 1 % (0-0); NEUTROPHILS 34 % (42.0-75.2); TOTAL CELLS COUNTED 100
[2017-03-14 10:05] LABS: PLATELET ESTIMATE NORMAL (NORMAL)
[2017-03-14 10:06] LABS: TARGET CELLS 1+
[2017-03-14 10:07] LABS: MICROCYTOSIS 1+; POIKILOCYTOSIS 2+
[2017-03-14 10:08] LABS: POLYCHROMASIA 1+
[2017-03-14 13:00] VITALS: BP 110/78; PULSE 94; TEMP 98.6
[2017-03-14 16:31] VITALS: BP 114/77; PULSE 99; TEMP 98.2
[2017-03-14 19:37] VITALS: BP 110/74; PULSE 105; TEMP 98.2
[2017-03-14 23:55] VITALS: BP 109/70; PULSE 90; TEMP 98.3
[2017-03-15 04:12] VITALS: BP 114/78; PULSE 87; TEMP 97.7
[2017-03-15 08:51] VITALS: BP 110/72; PULSE 90; TEMP 97.5
[2017-03-15 10:08] LABS: BASO % 0.5 % (0.0-2.0); EOS # 0.1 (0.0-0.7); EOS % 1.2 % (0-4.0); GRAN # 3.5 (1.4-6.5); GRAN % 39.6 % (42.2-75.2); LYMPH # 4.3 (1.2-3.4); LYMPH % 48.9 % (20.0-51.0); MEAN CELL VOLUME 93 fl (80.0-100.0); MEAN CORPUSCULAR HGB CONC 35 g/dl (33.0-37.0); MEAN PLATELET VOLUME 9.3 fl (7.4-10.4); MONO # 0.8 (0.1-0.6); MONO % 9.2 % (1.7-9.3); PLATELET COUNT 406 K/mm3 (130-400); RED BLOOD COUNT 2.54 M/mm3 (4.10-5.30); REDCELL DISTRIBUTION WIDTH-CV 22.1 % (11.5-14.5); RETIC % 11.7 % (0.5-3.52); WHITE BLOOD COUNT 8.9 K/mm3 (4.8-10.8)
[2017-03-15 10:09] LABS: HEMATOCRIT 23.7 % (37.0-47.0); HEMOGLOBIN 8.3 g/dl (12.5-16.0); MEAN CORPUSCULAR HEMOGLOBIN 33 pg (27.0-31.0)
[2017-03-15 12:05] VITALS: BP 122/71; PULSE 104; TEMP 97.6
[2017-03-15 16:25] VITALS: BP 109/70; PULSE 88; TEMP 98.5
[2017-03-15 17:45] LABS: CEREBROSPINAL TUBE #4; CSF APPEARANCE CLEAR; CSF COLOR COLORLESS
[2017-03-15 19:10] VITALS: BP 99/61; PULSE 106; TEMP 98.5
[2017-03-15 22:50] VITALS: BP 107/79; PULSE 110; TEMP 98.7
[2017-03-16 03:58] VITALS: BP 105/61; PULSE 82; TEMP 97.7
[2017-03-16 07:45] VITALS: BP 108/59; PULSE 100; TEMP 98.1
[2017-03-16 07:59] LABS: MEAN CORPUSCULAR HGB CONC 38 g/dl (33.0-37.0); MEAN PLATELET VOLUME 9.7 fl (7.4-10.4); PLATELET COUNT 406 K/mm3 (130-400); RED BLOOD COUNT 2.17 M/mm3 (4.10-5.30); REDCELL DISTRIBUTION WIDTH-CV 24.8 % (11.5-14.5); RETIC % 8.5 % (0.5-3.52); WHITE BLOOD COUNT 8.3 K/mm3 (4.8-10.8)
[2017-03-16 08:16] LABS: HEMATOCRIT 21.2 % (37.0-47.0); MEAN CELL VOLUME 98 fl (80.0-100.0); MEAN CORPUSCULAR HEMOGLOBIN 37 pg (27.0-31.0)
[2017-03-16 08:18] LABS: ADD PATHOLOGY DIFF REVIEW NO
[2017-03-16 08:53] LABS: EOSINOPHIL 2 % (0-4); METAMYELOCYTE 2 % (0-0); NEUTROPHILS 41 % (42.0-75.2); TOTAL CELLS COUNTED 100
[2017-03-16 08:54] LABS: PLATELET ESTIMATE NORMAL (NORMAL); POLYCHROMASIA 1+; TARGET CELLS 1+
[2017-03-16] MEDS ORDERED: NEURONTIN300 MG/CAP PO ×2 (12:10→12:11)
[2017-03-16] MEDS ORDERED: CYMBALTA 30MG30 MG PO (12:15)
[2017-03-16 12:47] VITALS: BP 101/70; PULSE 79; TEMP 98.2
[2017-03-17 13:55] LABS: CADMIUM BLOOD <0.2 ng/mL (0.0-4.9); MERCURY,SERUM <1 ng/mL (0-9)
[2017-03-17 18:04] LABS: .ANTICARDIOLIPIN IGG <9.4 GPL (()); .ANTICARDIOLIPIN IGM 10.9 MPL (())
[2017-03-21 16:04] LABS: 14-3-3 PROTEIN CSF 7.7 ng/mL (())
[2017-03-22 10:05] LABS: ALBUMIN CSF 52.3 mg/dL (<=27.0); CSF IGG/ALBUMIN 0.07 (<=0.21); CSF,IGG 3.8 mg/dL (<=8.1)
[2017-03-22 10:37] LABS: CSF-IGG INDEX 0.19 (<=0.85); IGG,SERUM 1490 mg/dL (()); IGG/ALBUMIN SERUM 0.37 (<=0.40)
== END 2017-03-16 16:52 | disposition home or self-care (01) | DRG 812 ==
LOC: COL.ER 14:40 → MEDICAL 19:21
PROVIDERS: Family Medicine; Internal Medicine; Nurse Practitioner; Nurse Practitioner Family; Physician Assistant; Psychiatry & Neurology Neurology
PROC: 009U3ZX Drainage of Spinal Canal, Percutaneous Approach, Diagnostic (ICD-10-PCS; principal; 2017-03-15)
PROC: B01B1ZZ Fluoroscopy of Spinal Cord using Low Osmolar Contrast (ICD-10-PCS; 2017-03-15)
DX: D57.00 Hb-SS disease with crisis, unspecified (principal); T82.514A Breakdown (mechanical) of infusion catheter, initial encounter; F32.9 Major depressive disorder, single episode, unspecified; G62.9 Polyneuropathy, unspecified; G35 Multiple sclerosis; I77.6 Arteritis, unspecified
CPT/HCPCS: OP; 99223-AI; 99232-AI; 99239; A9585; J0456; J0696; J1170; J1200; J1644; J1650; J1940; J2405; J2997; J3010; J7030; J7050; P9016

== ENCOUNTER 2017-05-05 03:51 | Inpatient (IN) | payer MEDICAID ==
[~2017-05-05] VITALS: Ht 160 cm; Wt 64.0 kg
[2017-05-05] VITALS (9 sets, daily range): BP systolic 108–130; BP diastolic 57–64; PULSE 67–84; TEMP 97.8–98.5
[~2017-05-05 03:51] MED LIST changes: +CYMBALTA 30MG30 MG PO; +NEURONTIN300 MG/CAP PO
[2017-05-05 04:40] LABS: MEAN CELL VOLUME 92 fl (80.0-100.0); MEAN CORPUSCULAR HGB CONC 37 g/dl (33.0-37.0); MEAN PLATELET VOLUME 8.9 fl (7.4-10.4); PLATELET COUNT 277 K/mm3 (130-400); RETIC # 0.67 M/mm3 (0.02-0.16); RETIC % 31.9 % (0.5-3.52)
[2017-05-05 04:41] LABS: HEMATOCRIT 19.3 % (37.0-47.0); HEMOGLOBIN 7.2 g/dl (12.5-16.0); MEAN CORPUSCULAR HEMOGLOBIN 34 pg (27.0-31.0)
[2017-05-05 04:56] LABS: ALBUMIN 4.8 gm/dL (3.5-5.0); BILIRUBIN,TOTAL 4.5 mg/dL (0.0-1.0); CALCIUM 9.2 mg/dL (8.4-10.2); CREATININE, serum 0.46 mg/dL (0.52-1.25); POTASSIUM 3.7 mmol/L (3.4-5.0); TOTAL PROTEIN 8.7 gm/dL (6.4-8.2)
[2017-05-05 04:58] LABS: ANISOCYTOSIS 2+; BAND 3 % (0-10); EOSINOPHIL 2 % (0-4); LYMPHOCYTE 47 % (20.0-51.0); NEUTROPHILS 39 % (42.0-75.2); NUCLEATED RED BLOOD CELL 5 (0-6); POLYCHROMASIA 1+
[2017-05-05 05:00] LABS: SICKLE CELLS 2+
--- NOTE | 2017-05-05 06:41 | NUR ---
Patient assessment completed, vital signs are stable, patient reports 6/10 pain in her lower back and all extremities, INDIGO MIXER has been initiated, she denies having any additional concerns at this time, currently she is resting calmly in bed, call light is in reach, will continue to monitor.
[2017-05-05 09:03] LABS: COLLECTION METHOD CLEAN CATCH
[2017-05-05 09:11] LABS: PH 6 (5-8); URINE APPEARANCE Hazy; URINE BACTERIA Rare /hpf; URINE BILIRUBIN Negative (NEGATIVE); URINE BLOOD 1+ (NEGATIVE); URINE COLOR Yellow; URINE GLUCOSE Negative (NEGATIVE); URINE KETONE Negative (NEGATIVE); URINE LEUKOCYTE ESTERASE Negative (NEGATIVE); URINE NITRATE Negative (NEGATIVE); URINE PROTEIN(semi-quant) Negative (NEGATIVE); URINE RBC 0-2 /hpf; URINE UROBILINOGEN >=4.0 mg/dL (NEGATIVE)
--- NOTE | 2017-05-05 09:45 | NUR ---
Patient resting in bed at this time. Patient appears weak and in significant pain. She is c/o pain in bilateral lower extremities 8/10 on the pain scale. TECHNICAL PUBLICATIONS WRITER Diludid being used by patient frequently. No other needs at this time
--- NOTE | 2017-05-05 10:25 | NUR ---
Carli is well known to this NCM. She is completely independent and has no dc needs. She has roommates that she can rely on if needed. She is here w/ [facility]. This NCM will cont to follow along.
--- NOTE | 2017-05-05 14:01 | NUR ---
Patient resting in bed. Continues to use PATIENT REGISTRATION SPECIALIST Diludid. Patient states she had some nausea this AM but no emesis noted. Patient denies any needs at this time.
--- NOTE | 2017-05-05 18:39 | NUR ---
Patient has no further c/o's nausea. Resting in bed at this time. Denies any needs. Continues to use PIGS FEET CLEANER Diludid. Drowsy every time in room.
--- NOTE | 2017-05-05 20:40 | NUR ---
Pt sleeping at this time. Assessment complete. A&Ox3. Lungs CTA. Heart rhythm regular. Audible bowel sounds X4. IV infusing per orders without difficulty. Pt denies pain at this time. Pt denies any needs at this time. Call light in reach. Will continue to monitor.
[2017-05-06] VITALS (7 sets, daily range): BP systolic 94–137; BP diastolic 54–69; PULSE 70–95; TEMP 97.5–98.8
--- NOTE | 2017-05-06 06:20 | NUR ---
Pt had uneventful night. Pt slept throughout the shift with even and unlabored respirations. IV infusing per orders without difficulty. Call light in reach.
[2017-05-06 07:10] LABS: BASO % 0.3 % (0.0-2.0); EOS # 0.3 (0.0-0.7); EOS % 3.2 % (0-4.0); GRAN # 2.8 (1.4-6.5); GRAN % 33.1 % (42.2-75.2); LYMPH # 4.6 (1.2-3.4); LYMPH % 52.9 % (20.0-51.0); MEAN CELL VOLUME 92 fl (80.0-100.0); MEAN CORPUSCULAR HGB CONC 36 g/dl (33.0-37.0); MEAN PLATELET VOLUME 8.8 fl (7.4-10.4); MONO # 0.9 (0.1-0.6); MONO % 10.4 % (1.7-9.3); PLATELET COUNT 305 K/mm3 (130-400); RED BLOOD COUNT 2.03 M/mm3 (4.10-5.30); REDCELL DISTRIBUTION WIDTH-CV 21.4 % (11.5-14.5)
[2017-05-06 07:18] LABS: HEMATOCRIT 18.7 % (37.0-47.0); HEMOGLOBIN 6.8 g/dl (12.5-16.0); MEAN CORPUSCULAR HEMOGLOBIN 33 pg (27.0-31.0)
[2017-05-06 07:36] LABS: CALCIUM 8.7 mg/dL (8.4-10.2); CREATININE, serum 0.36 mg/dL (0.52-1.25); POTASSIUM 4.2 mmol/L (3.4-5.0)
--- NOTE | 2017-05-06 08:13 | NUR ---
Pt resting in bed with call light within reach; FENDER REPAIRER and IVF infusing to left hand IV without complications. Assessment complete and charted; no further needs at this time. Will continue to monitor.
--- NOTE | 2017-05-06 17:51 | NUR ---
Pt had uneventful day; resting in bed with call light within reach. DOMAIN ARCHITECT pump and IVF infusing to left hand IV without complication; complains of nausea, prn zofran given. No further needs at this time. Will continue to monitor.
--- NOTE | 2017-05-06 19:45 | NUR ---
Pt sitting up in bed at this time. Assessment complete. A&Ox3. Lungs CTA. Heart rhythm regular. Audible bowel sounds X4. IV infusing per orders without difficulty. TOMBSTONE CARVER infusing per orders without difficulty. Pt denies pain at this time. Pt denies any needs at this time. Call light in reach. Will continue to monitor.
[2017-05-07] VITALS (10 sets, daily range): BP systolic 103–120; BP diastolic 51–59; PULSE 69–91; TEMP 97.7–98.6
--- NOTE | 2017-05-07 06:44 | NUR ---
Pt had uneventful night. Pt slept throughout the shift with even unlabored respirations. IV fluids infusing per orders without difficulty. Call light in reach.
--- NOTE | 2017-05-07 08:46 | NUR ---
Pt resting in bed with call light within reach; states she is having more back and leg pain today; encouraged to use ANIMATED CARTOONS PAINTER pump as needed. Assessment complete and charted. IVF infusing to left hand without complications. No further needs at this time. Will continue to monitor.
[2017-05-07 09:18] LABS: BASO % 0.3 % (0.0-2.0); EOS # 0.2 (0.0-0.7); EOS % 2.3 % (0-4.0); GRAN # 5.2 (1.4-6.5); GRAN % 52.5 % (42.2-75.2); LYMPH # 3.8 (1.2-3.4); LYMPH % 37.9 % (20.0-51.0); MEAN CELL VOLUME 91 fl (80.0-100.0); MEAN CORPUSCULAR HGB CONC 37 g/dl (33.0-37.0); MEAN PLATELET VOLUME 9.3 fl (7.4-10.4); MONO # 0.7 (0.1-0.6); MONO % 6.8 % (1.7-9.3); PLATELET COUNT 351 K/mm3 (130-400); REDCELL DISTRIBUTION WIDTH-CV 20.3 % (11.5-14.5)
[2017-05-07 09:27] LABS: HEMOGLOBIN 6.7 g/dl (12.5-16.0); MEAN CORPUSCULAR HEMOGLOBIN 34 pg (27.0-31.0)
[2017-05-07 09:28] LABS: HEMATOCRIT 18.1 % (37.0-47.0)
[2017-05-07 09:37] LABS: CALCIUM 8.8 mg/dL (8.4-10.2); CREATININE, serum 0.35 mg/dL (0.52-1.25); POTASSIUM 4.4 mmol/L (3.4-5.0)
--- NOTE | 2017-05-07 16:46 | NUR ---
Unit of blood started. Consent signed; pt verbalizes understanding of all possible side effects. Verified with SHARIFA Gómez. Remained with patient for first 15 minutes of transfusion at 60 mL/hr; increased rate to 100. No adverse effects noted. All vital signs stable. Will continue to monitor.
--- NOTE | 2017-05-07 19:10 | NUR ---
Transfusion completed. ORNAMENTAL IRONWORKER hooked back up. Pt tolerated transfusion without any adverse effects noted. Report given to SHARIFA White.
--- NOTE | 2017-05-07 22:08 | NUR ---
Assessment complete. Pt is AXO X3, pt states she has pain rated at a 7 throughout both of her legs that radiates to her hips. Breathing is even and unlabored on room air, respirations monitored due to being on BEHAVIOR ANALYST. LH infusing, CDI. VSS. Pt denies further needs. Call light within reach, will continue to monitor.
[2017-05-08 03:45] VITALS: BP 117/60; PULSE 95; TEMP 98.6
--- NOTE | 2017-05-08 06:32 | NUR ---
Pt had a constant pain rated at a 6-7 throughout the night. Pt was encouraged to use CHEMIST FOOD when needed, remained awake most of the shift. Call light within reach.
[2017-05-08 07:00] LABS: BASO % 0.3 % (0.0-2.0); EOS # 0.3 (0.0-0.7); GRAN # 4.6 (1.4-6.5); GRAN % 46.9 % (42.2-75.2); LYMPH % 41.4 % (20.0-51.0); MEAN CELL VOLUME 88 fl (80.0-100.0); MEAN CORPUSCULAR HGB CONC 37 g/dl (33.0-37.0); MEAN PLATELET VOLUME 9.2 fl (7.4-10.4); MONO # 0.8 (0.1-0.6); MONO % 8.1 % (1.7-9.3); PLATELET COUNT 323 K/mm3 (130-400); RED BLOOD COUNT 2.22 M/mm3 (4.10-5.30)
[2017-05-08 07:07] LABS: HEMATOCRIT 19.5 % (37.0-47.0); HEMOGLOBIN 7.3 g/dl (12.5-16.0); MEAN CORPUSCULAR HEMOGLOBIN 33 pg (27.0-31.0)
[2017-05-08 07:12] LABS: CALCIUM 8.7 mg/dL (8.4-10.2); CREATININE, serum 0.34 mg/dL (0.52-1.25); POTASSIUM 4.1 mmol/L (3.4-5.0)
[2017-05-08 08:30] VITALS: BP 112/65; PULSE 76; TEMP 98.4
--- NOTE | 2017-05-08 09:00 | NUR ---
Assessment completed. A&OX3, able to verbalize needs. Reports pain 8/10. TEXTILE BROKER in place. NO resp. disress noted. VSS. IV left hand free of complications, IVF per orders. Gait steady. Denies needs. Call light in reach.
[2017-05-08 13:23] VITALS: BP 119/62; PULSE 68; TEMP 98.8
[2017-05-08 16:38] VITALS: BP 111/63; PULSE 78; TEMP 98.7
[2017-05-08 20:18] VITALS: BP 116/68; PULSE 65; TEMP 98.5
--- NOTE | 2017-05-08 20:30 | NUR ---
Assessment complete. Pt is AXO X3, states her pain continues to stay at a 6, encouraged to use her PARAFFIN PLANT OPERATOR as needed. Breathing is even and unlabored, respirations monitored but to being on PARAFFIN PLANT OPERATOR. LH infusing, CDI. VSS. Pt denies further needs. Call light within reach, will continue to monitor.
[2017-05-08 23:08] VITALS: BP 133/77; PULSE 101; TEMP 98.8
[2017-05-09 03:12] VITALS: BP 117/59; PULSE 72; TEMP 97.6
[2017-05-09 07:08] LABS: BASO % 0.4 % (0.0-2.0); EOS # 0.2 (0.0-0.7); EOS % 2.9 % (0-4.0); GRAN # 2.8 (1.4-6.5); GRAN % 37.5 % (42.2-75.2); LYMPH # 3.8 (1.2-3.4); LYMPH % 50.3 % (20.0-51.0); MEAN CELL VOLUME 86 fl (80.0-100.0); MEAN CORPUSCULAR HGB CONC 38 g/dl (33.0-37.0); MEAN PLATELET VOLUME 8.8 fl (7.4-10.4); MONO # 0.7 (0.1-0.6); MONO % 8.8 % (1.7-9.3); PLATELET COUNT 322 K/mm3 (130-400); RED BLOOD COUNT 2.08 M/mm3 (4.10-5.30); REDCELL DISTRIBUTION WIDTH-CV 19.3 % (11.5-14.5)
[2017-05-09 07:15] LABS: CALCIUM 8.6 mg/dL (8.4-10.2); CREATININE, serum 0.34 mg/dL (0.52-1.25); POTASSIUM 4.1 mmol/L (3.4-5.0)
--- NOTE | 2017-05-09 07:18 | NUR ---
Pt had constant pain throughout the night rated at a 6-7. Pt encouraged to use POOL MANAGER when in pain. Resting quietly now. Report given to SHARIFA Alas.
[2017-05-09 07:39] VITALS: BP 106/60; PULSE 83; TEMP 98.6
[2017-05-09 07:39] LABS: HEMATOCRIT 17.8 % (37.0-47.0); HEMOGLOBIN 6.7 g/dl (12.5-16.0); MEAN CORPUSCULAR HEMOGLOBIN 32 pg (27.0-31.0)
--- NOTE | 2017-05-09 08:53 | NUR ---
Assessment completed. A&OX3, able to verbalize needs. Reports pain 6/10. PLATE ROLLER in place. No resp distress noted on 2L NC. Tele on, VSS. IVF per orders, IV left hand free of complications. Denies further needs. Call light in reach.
[2017-05-09 11:26] VITALS: BP 115/69; PULSE 92; TEMP 98.2
[2017-05-09 16:08] VITALS: BP 102/61; PULSE 76; TEMP 98.1
[2017-05-09 19:28] VITALS: BP 112/63; PULSE 91; TEMP 98.1
--- NOTE | 2017-05-09 19:45 | NUR ---
Assessment complete. Pt is AXO X3, states her pain is at a 7, encouraged to use her GROUND SYSTEMS ENGINEER as needed, PRN pain medication given. Breathing is even and unlabored. LH infusing, CDI. VSS. Pt denies further needs. Call light within reach, will continue to monitor.
[2017-05-09 23:59] VITALS: BP 114/63; PULSE 64; TEMP 98.2
[2017-05-10] VITALS (8 sets, daily range): BP systolic 110–126; BP diastolic 57–77; PULSE 61–103; TEMP 97.6–99
--- NOTE | 2017-05-10 06:33 | NUR ---
Pt had a constant pain throughout the shift rated at a 6-7. Pt encouraged to use her HOT MILL SHEARER when needed and PRN pain medication administered. Pt slept easily for most of the night. Resting quietly now. Call light within reach.
[2017-05-10 08:11] LABS: BASO % 0.3 % (0.0-2.0); EOS # 0.3 (0.0-0.7); EOS % 3.4 % (0-4.0); GRAN # 2.8 (1.4-6.5); GRAN % 34.9 % (42.2-75.2); LYMPH # 4.3 (1.2-3.4); LYMPH % 53.7 % (20.0-51.0); MEAN CELL VOLUME 88 fl (80.0-100.0); MEAN CORPUSCULAR HGB CONC 37 g/dl (33.0-37.0); MEAN PLATELET VOLUME 9.3 fl (7.4-10.4); MONO # 0.6 (0.1-0.6); MONO % 7.4 % (1.7-9.3); PLATELET COUNT 362 K/mm3 (130-400); RED BLOOD COUNT 2.08 M/mm3 (4.10-5.30); REDCELL DISTRIBUTION WIDTH-CV 19.4 % (11.5-14.5)
[2017-05-10 08:18] LABS: HEMATOCRIT 18.2 % (37.0-47.0); HEMOGLOBIN 6.8 g/dl (12.5-16.0); MEAN CORPUSCULAR HEMOGLOBIN 33 pg (27.0-31.0)
[2017-05-10 08:53] LABS: CALCIUM 8.8 mg/dL (8.4-10.2); CREATININE, serum 0.34 mg/dL (0.52-1.25); POTASSIUM 4.2 mmol/L (3.4-5.0)
--- NOTE | 2017-05-10 14:10 | NUR ---
NCM seen patient, follow up visit. Patient is drowsy, states her pain still not controlled. She remains on LOGISTICS RESEARCH ENGINEER Dialudid per protocol. NCM encouraged increase oral intake and activity. NCM will follow.
[2017-05-10 15:36] LABS: RETIC % 12.4 % (0.5-3.52)
[2017-05-10 15:40] LABS: RETIC # 0.27 M/mm3 (0.02-0.16)
--- NOTE | 2017-05-10 17:34 | NUR ---
COLD MEAT COOK SYRINGE EMPTY, DC'D AT THIS TIME PER ORDERS, IV FLUIDS INFUSING AT THIS TIME.
--- NOTE | 2017-05-10 19:32 | NUR ---
CARE GIVEN TO PAZ SKAGGS
--- NOTE | 2017-05-10 20:00 | NUR ---
Pt assessment complete. Pt just returning from walking halls. Pt states she has occasional SOB with ambulation but denies it at this time. O2 sat taken on RA and ~80% pt's oxygen replaced at this time O2 sat's improved to >90%. Pt currently denies N/V or N/T. She reports a headache 5/10 at this time. IVF infusing without complications. Pt denies further needs at this time. Call light within reach. Will continue to monitor.
[2017-05-11 04:10] VITALS: BP 126/73; PULSE 67; TEMP 98.1
--- NOTE | 2017-05-11 06:26 | NUR ---
Pt slept well through the night. Her pain was well controlled requiring one dose of PRN pain medications. Pt had minimal N/V. VSS. Pt denies needs at this time. Call light within reach. Will continue to monitor.
[2017-05-11 07:57] VITALS: BP 114/55; PULSE 71; TEMP 99.2
[2017-05-11 08:28] LABS: BASO % 0.3 % (0.0-2.0); EOS # 0.2 (0.0-0.7); EOS % 2.3 % (0-4.0); GRAN # 2.2 (1.4-6.5); GRAN % 31.8 % (42.2-75.2); LYMPH # 3.9 (1.2-3.4); LYMPH % 56.6 % (20.0-51.0); MEAN CELL VOLUME 88 fl (80.0-100.0); MEAN CORPUSCULAR HGB CONC 39 g/dl (33.0-37.0); MEAN PLATELET VOLUME 9.4 fl (7.4-10.4); MONO # 0.6 (0.1-0.6); MONO % 8.7 % (1.7-9.3); PLATELET COUNT 384 K/mm3 (130-400); RED BLOOD COUNT 1.93 M/mm3 (4.10-5.30); REDCELL DISTRIBUTION WIDTH-CV 19.4 % (11.5-14.5); RETIC # 0.28 M/mm3 (0.02-0.16); RETIC % 14.5 % (0.5-3.52)
[2017-05-11 08:40] LABS: HEMATOCRIT 16.9 % (37.0-47.0); HEMOGLOBIN 6.5 g/dl (12.5-16.0); MEAN CORPUSCULAR HEMOGLOBIN 34 pg (27.0-31.0)
--- NOTE | 2017-05-11 09:22 | NUR ---
Assessment completed. A&OX3, able to verbalize needs. Reports pain 5/10 in head/back, scheduled pain medication given. No resp. distress noted on room air. VSS, tele on. IVF per orders to left hand IV. Denies nausea. Will continue to monitor. Bed low, call light in reach.
[2017-05-11 10:59] VITALS: BP 121/67; PULSE 79; TEMP 98.9
[2017-05-11] MEDS ORDERED: MS CONTIN 115 MG/TAB PO (14:30)
[2017-05-11] MEDS ORDERED: SENOKOT S 50 MG1 TAB PO (14:32)
--- NOTE | 2017-05-11 16:27 | NUR ---
Intact IV removed. Discharge materials reviewed. Prescriptions provided along with educational packets. Follow up appointments with PCP and Dr Lawson scheduled. All questions answered.
--- NOTE | 2017-05-11 18:21 | NUR ---
Patient taken out via wheel chair.
[2017-07-06] MEDS ORDERED: CYMBALTA 60MG60 MG PO (17:17)
[2017-07-12] MEDS ORDERED: VOLTAREN GEL 1%1 TU TP (09:20)
[2017-07-12] MEDS ORDERED: NORCO 325 MG-7.1 TAB PO (09:21)
[2017-07-13] MEDS ORDERED: LEVAQUIN 750MG750 M1 PO (10:30)
== END 2017-05-11 18:21 | disposition home or self-care (01) | DRG 812 ==
LOC: COL.ER 03:51 → MEDICAL 05:44
PROVIDERS: Emergency Medicine; Internal Medicine; Nurse Practitioner; Nurse Practitioner Family; Physician Assistant
DX: D57.00 Hb-SS disease with crisis, unspecified (principal); E16.2 Hypoglycemia, unspecified
CPT/HCPCS: 99223-AI; 99232-AI; 99233-AI; 99239; J1170; J1650; J2405; J2765; J3010; J3480; J7030; P9016